=== PATIENT | male | born 1955 | race Caucasian/White ===

== ENCOUNTER → 2020-12-25 07:29 | Outpatient (CLI) | payer OTHER, SELFPAY ==
--- NOTE | ~2020-12-25 | MR_ITS ---
EXAMINATION: MR abdomen wo/w con INDICATION: Cystic lesion of the pancreas on CT (not available for comparison) TECHNIQUE: Coronal SSFSE ARC, WATER:coronal LAVA-FLEX, Coronal 2D FIESTA FatSat, Axial SSFSE BH ARC, Axial 3D DualEcho BH, Axial SSFSE-IR, Axial DWI b=500, Axial 2D FIESTA FatSat, pre and dynamic postco ntrast Axial LAVA ARC, postcontrast Coronal In and Opposed phase LAVA FLEX COMPARISON: None available CONTRAST: Multihance, 20 cc FINDINGS: The heart size is normal. The liver, spleen, gallbladder, and adrenal glands are normal. Cy sts of the kidneys measure up to 2.9 cm on the right. There is an 8 mm hemorrhagic cyst of the left k [place]ney lower pole. The pancreas is unremarkable. No cystic pancreatic lesion is identified. Although l imited by respiratory motion artifact, no abnormal enhancement is identified postcontrast sequences. No pathologically enlarged abdominal lymph nodes are identified. There are no dilated loops of bowel. IMPRESSION: 1. No definite pancreatic lesion identified. Comparison with prior imaging may be helpful. Reviewed, dictated and finalized at location A. [facility] ASSISTANT
[2020-12-25 08:07] LABS: Estimated Glomerular Filt Rate > 60
== END ==
PROVIDERS: PCP Internal Medicine; Visit Provider Internal Medicine
DX: K86.9 Disease of pancreas, unspecified (principal); N28.1 Cyst of kidney, acquired
CPT/HCPCS: 74183; A9577

== ENCOUNTER 2021-04-14 13:37 | Emergency (ER) | payer MEDICARE, SELFPAY ==
[2021-04-14 13:57] VITALS: BP 149/60; PULSE 78; RESP 14; TEMP 37.1; O2SAT 99
== END 2021-04-14 14:27 | disposition left against medical advice (07) ==
LOC: EXPBETH 13:41
PROVIDERS: Emergency Provider Nurse Practitioner Family; PCP Internal Medicine
DX: Z53.21 Procedure and treatment not carried out due to patient leaving prior to being seen by health care provider (principal)
CPT/HCPCS: 99199